=== PATIENT | female | born 1995 | race Two or more races ===

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

== ENCOUNTER 2017-07-10 21:12 | Emergency (ER) | payer OTHER ==
[~2017-07-10] VITALS: Ht 167.6 cm; Wt 71.7 kg
[~2017-07-10 21:12] MED LIST changes: +MACROBID100 MG PO; +PYRIDIUM100 MG PO
[2017-07-10 23:28] LABS: MCH 30.8 PG (29.0-34.0); MCHC 34.7 G/DL (30.0-36.0); MCV 88.7 FL (83-99); MEAN PLAT.VOLUME 10.1 uM^3 (9.5-12.4); PLATELET COUNT 233 K/uL (156-360); RBC DIS.WIDTH-SD 38.5 % (39-53); RED BLOOD COUNT 4.06 M/uL (3.80-5.20); WHITE BLOOD COUNT 9.7 K/uL (4.1-10.2)
[2017-07-10 23:37] LABS: CHLORIDE 106 mEq/L (99-109); POTASSIUM 3.4 mEq/L (3.7-5.4); SODIUM 138 mEq/L (136-147)
[2017-07-10 23:41] LABS: ANION GAP 8 MEQ/L (2-14)
[2017-07-10 23:43] LABS: GFR ESTIMATE (CALCULATED) > 59 mL/min/
[2017-07-10 23:44] LABS: UREA NITROGEN (BUN) 11 mg/dL (9-23)
[2017-07-10 23:56] LABS: GLUCOSE 76 mg/dL (70-99)
[2017-07-11 00:08] LABS: QUANTITATIVE HCG 507.4 MIU/ML
[2017-07-11 00:21] LABS: ADD MIUA? YES; BILIRUBIN NEGATIVE; BLOOD SMALL; COLOR YELLOW ((YELLOW)); GLUCOSE (STRIP) NEGATIVE; KETONES NEGATIVE; LEUKOCYTES MODERATE; NITRITE NEGATIVE; PROTEIN (STRIP) 30; SPECIFIC GRAVITY 1.023 (1.000-1.030)
[2017-07-11 00:25] LABS: BACTERIA NONE SEEN /HPF; EPITHELIAL CELLS 1+ /HPF; MUCUS TRACE /LPF; RED BLOOD CELLS 0-5 /HPF (0-5); UCUL ADDED? NO; WHITE BLOOD CELLS 0-5 /HPF (0-5)
[2017-07-11 01:03] VITALS: BP 116/61
== END 2017-07-11 01:05 | disposition home or self-care (01) ==
LOC: EME 21:12
PROVIDERS: Physician Assistant
DX: O26.891 Other specified pregnancy related conditions, first trimester (principal); R20.2 Paresthesia of skin; M79.1 Myalgia; O23.11 Infections of bladder in pregnancy, first trimester; Z3A.01 Less than 8 weeks gestation of pregnancy
CPT/HCPCS: 80048; 81003; 84702; 85027; 93005; 99281; 99285

== ENCOUNTER 2018-02-25 22:32 | Outpatient (CLI) | payer OTHER ==
[2018-02-25 22:49] VITALS: BP 125/70
[2018-02-26 00:28] VITALS: BP 135/75
[2018-02-26 03:23] VITALS: BP 129/70
[2018-02-26 04:33] VITALS: BP 123/73
[2018-02-26 06:54] VITALS: BP 118/56
[2018-02-26] MEDS ORDERED: PRENATAL TABLE1 EACH PO (08:08)
== END 2018-02-26 08:16 | disposition home or self-care (01) ==
LOC: LDRP-OP 22:32 → 2WEST 22:33 → LDRP-OP 04-18 11:23
DX: O47.1 False labor at or after 37 completed weeks of gestation (principal); Z3A.37 37 weeks gestation of pregnancy
CPT/HCPCS: 59025; G0378

== ENCOUNTER 2018-03-09 11:03 | Outpatient (CLI) | payer OTHER ==
[~2018-03-09 11:03] MED LIST changes: +PRENATAL TABLE1 EACH PO
[2018-03-09 11:21] VITALS: BP 117/74
== END 2018-03-09 12:30 | disposition home or self-care (01) ==
LOC: LDRP-OP 11:03 → 2WEST 11:04 → LDRP-OP 04-18 08:31
DX: O36.8130 Decreased fetal movements, third trimester, not applicable or unspecified (principal); Z3A.38 38 weeks gestation of pregnancy
CPT/HCPCS: 59025; G0378

== ENCOUNTER 2018-03-13 03:51 | Inpatient (IN) | payer OTHER ==
[~2018-03-13] VITALS: Ht 167.6 cm; Wt 89.0 kg
[2018-03-13] VITALS (12 sets, daily range): BP systolic 109–140; BP diastolic 56–74
[2018-03-13] MEDS ORDERED: IBUPROFEN800 MG PO (05:28)
[2018-03-14 07:01] LABS: BASOPHIL (%) 0.3 % (0-1); EOSINOPHIL (%) 0.6 % (0-5); EOSINOPHIL COUNT 0.1 K/uL (0-0.3); HEMATOCRIT 31.3 % (36.0-46.0); HEMOGLOBIN 10.8 G/DL (11.9-15.5); IMMATURE GRANULOCYTE (%) 0.4 % (0.0-0.7); LYMPHOCYTE (%) 17.5 % (15-42); LYMPHOCYTE COUNT 2.3 K/uL (1.0-2.8); MCHC 34.5 G/DL (30.0-36.0); MCV 89.9 FL (83-99); MONOCYTE COUNT 0.7 K/uL (0-0.8); NEUTROPHIL (%) 76.2 % (45-76); NEUTROPHIL COUNT 10.1 K/uL (1.8-6.4); PLATELET COUNT 145 K/uL (156-360); RBC DIS.WIDTH-CV 13.5 % (11.8-14.6); RBC DIS.WIDTH-SD 43.8 % (39-53); RED BLOOD COUNT 3.48 M/uL (3.80-5.20); WHITE BLOOD COUNT 13.3 K/uL (4.1-10.2)
[2018-03-14 07:29] VITALS: BP 115/65
== END 2018-03-14 13:00 | disposition home or self-care (01) | DRG 775 ==
LOC: LDRP-OP 03:51 → 2WEST 03:52 → LDRP-OP 04-18 12:42
PROVIDERS: Advanced Practice Midwife
PROC: 10E0XZZ Delivery of Products of Conception, External Approach (ICD-10-PCS; principal; 2018-03-13)
PROC: 10907ZC Drainage of Amniotic Fluid, Therapeutic from Products of Conception, Via Natural or Artificial Opening (ICD-10-PCS; 2018-03-13)
DX: O99.344 Other mental disorders complicating childbirth (principal); O99.354 Diseases of the nervous system complicating childbirth; O99.12 Other diseases of the blood and blood-forming organs and certain disorders involving the immune mechanism complicating childbirth; O62.3 Precipitate labor; Z37.0 Single live birth; Z3A.39 39 weeks gestation of pregnancy; F41.9 Anxiety disorder, unspecified; G43.909 Migraine, unspecified, not intractable, without status migrainosus; D69.59 Other secondary thrombocytopenia
CPT/HCPCS: 85025; J0595